=== PATIENT | female | born 1940 | race African-American/Black ===

== ENCOUNTER 2018-12-27 15:14 | Inpatient (IN) | payer MEDICARE, OTHER ==
[2018-12-27] MEDS: IPRATROPIUM (NEB) 0.5 MG/2.5 ML AMP INH (15:56)
[2018-12-27] MEDS: ALBUTEROL 0.083% (NEB) 2.5 MG/3 ML AMP INH (15:57)
[2018-12-27 16:30] LABS: ADD MAN DIFF? NO
[2018-12-27 16:32] LABS: WHITE BLOOD COUNT 5.9 10^3/ul (4.8-10.8)
[2018-12-27 16:32] LABS: BASOPHILS % 0.2 % (0.0-2.0); EOSINOPHILS # 0.2 10^3/ul (0.0-0.5); EOSINOPHILS % 3.1 % (0.0-7.0); HEMATOCRIT 33.4 % (37.0-47.0); LYMPHOCYTES % 34.1 % (15.0-51.0); MEAN CORPUSCULAR HGB CONC 29.9 g/dl (32.0-37.0); MEAN PLATELET VOLUME 9.7 fl (7.4-10.4); MONOCYTE # 0.6 10^3/ul (0.3-0.9); MONOCYTES % 10.1 % (0.0-11.0); NEUTROPHIL # 3.1 10^3/ul (1.6-7.5); NEUTROPHILS % 52.2 % (39.0-77.0); PLATELET COUNT 355 10^3/UL (140-415); RED BLOOD COUNT 3.84 10^6/ul (4.20-5.40); RED CELL DISTRIBUTION WIDTH 18.5 % (11.5-14.5)
[2018-12-27] MEDS: DEXAMETHASONE 10 MG/ML 1 ML INJ IV (16:41)
[2018-12-27 16:54] LABS: ALANINE AMINOTRANSFERASE 19 IU/L (13-69); ALBUMIN 3.7 g/dl (3.3-4.9); ALBUMIN/GLOBULIN RATIO 0.97; ALKALINE PHOSPHATASE 67 IU/L (42-121); ANION GAP 3 (5-13); ASPARTATE AMINO TRANSFERASE 36 IU/L (15-46); BILIRUBIN,INDIRECT 0.3 mg/dl (0-1.1); BILIRUBIN,TOTAL 0.3 mg/dl (0.2-1.3); BLOOD UREA NITROGEN 13 mg/dl (7-20); CALCIUM 9.4 mg/dl (8.4-10.2); CARBON DIOXIDE 40 mmol/L (21-31); CHLORIDE 97 mmol/L (97-110); GLUCOSE 171 mg/dl (70-220); POTASSIUM 3.7 mmol/L (3.5-5.1); SODIUM 140 mmol/L (135-144); TOTAL PROTEIN 7.5 g/dl (6.1-8.1)
[2018-12-27 17:04] LABS: TROPONIN-I < 0.012 ng/ml (0.000-0.120)
[2018-12-27] MEDS ORDERED: ACETAMINOPHEN 325 MG TAB PO ×2 (18:00→18:30)
[2018-12-27] MEDS ORDERED: ONDANSETRON 4 MG INJ IV ×2 (18:00→18:30)
[2018-12-27] MEDS ORDERED: LORAZEPAM 2 MG INJ IV (18:30)
[2018-12-27] MEDS ORDERED: morphine 2 MG INJ IV (18:30)
[2018-12-27] MEDS ORDERED: DOCUSATE SODIUM 100 MG CAP PO (18:30)
[2018-12-27] MEDS ORDERED: NITROGLYCERIN (SL) 0.4 MG TAB SL (18:30)
[2018-12-27] MEDS ORDERED: hydrALAzine 20 MG INJ IV (18:30)
[2018-12-27] MEDS ORDERED: NACL 0.9% 3 ML SYG IV (18:30)
[2018-12-27] MEDS ORDERED: MAGNESIUM HYDROXIDE 30ML CUP PO (18:30)
[2018-12-27] MEDS ORDERED: HYDROCODONE/APAP (5/325) TAB PO (18:30)
[2018-12-27] MEDS: SOD CHLORIDE 0.9% 100 ML (19:08)
[2018-12-27] MEDS: IOHEXOL 300MG/ML 150 ML BTL (19:08)
[2018-12-27 19:45] LABS: FREE T4 (FREE THYROXINE) 1.08 ng/dl (0.78-2.44)
[2018-12-28] MEDS: HEPARIN 5,000 UNIT/1 ML VIAL SC ×3 (02:12→20:22)
[2018-12-28] MEDS: SOD CHLORIDE 0.45% 1,000 ML IV ×3 (02:12→23:40)
[2018-12-28] MEDS: traZODone 50 MG TAB PO ×2 (02:12→20:22)
[2018-12-28] MEDS: [UNRECOGNIZED DRUG - REMARK] XX ×3 (07:30→23:30)
[2018-12-28] MEDS ORDERED: [UNRECOGNIZED DRUG - OTHER] PO (09:00)
[2018-12-28] MEDS: FAMOTIDINE 20 MG TAB PO (09:00)
[2018-12-28] MEDS: MULTIVITAMINS THERAPEUTIC TAB PO (09:05)
[2018-12-28] MEDS: CLOPIDOGREL 75 MG TAB PO (09:05)
[2018-12-29] MEDS: HEPARIN 5,000 UNIT/1 ML VIAL SC ×2 (09:00→21:00)
[2018-12-29] MEDS: [UNRECOGNIZED DRUG - REMARK] XX ×3 (09:13→23:30)
[2018-12-29] MEDS: MULTIVITAMINS THERAPEUTIC TAB PO (09:17)
[2018-12-29] MEDS: FAMOTIDINE 20 MG TAB PO (09:17)
[2018-12-29] MEDS: CLOPIDOGREL 75 MG TAB PO (09:18)
[2018-12-29] MEDS: SOD CHLORIDE 0.45% 1,000 ML IV (12:45)
[2018-12-29] MEDS: traZODone 50 MG TAB PO (21:58)
[2018-12-29] MEDS: ALBUTEROL/IPRATROPIUM (NEB) 3 ML AMP HHN (22:12)
[2018-12-30] MEDS: SOD CHLORIDE 0.45% 1,000 ML IV ×2 (01:33→14:57)
[2018-12-30] MEDS: FAMOTIDINE 20 MG TAB PO (08:47)
[2018-12-30] MEDS: HEPARIN 5,000 UNIT/1 ML VIAL SC ×2 (08:47→21:00)
[2018-12-30] MEDS: [UNRECOGNIZED DRUG - REMARK] XX ×3 (08:47→22:10)
[2018-12-30] MEDS: CLOPIDOGREL 75 MG TAB PO (08:47)
[2018-12-30] MEDS: MULTIVITAMINS THERAPEUTIC TAB PO (08:48)
[2018-12-30] MEDS: MUPIROCIN 2% 22 GM OINT TOP ×2 (10:14→21:29)
[2018-12-30 10:24] LABS: AADO2 Arterial 34.4 mmHg (7.0-24.0); Allen Test ACCEPTAB; Arterial Base Excess 5.6 mmol/L (-3.0-3); Arterial Blood Gas Oxygen Sat 87.6 mmHG (95.0-100.0); Arterial COHb 0 % (0.0-3.0); Arterial Fraction of Oxyhgb 87.3 % (93.0-99.0); Arterial HCO3 31.4 mmol/L (22.0-26.0); Arterial MetHb 0.3 % (0.0-1.5); Arterial pCO2 51.7 mmhg (35-45); MODE ROOM AIR; Site Right Radial
[2018-12-30] MEDS: ALBUTEROL/IPRATROPIUM (NEB) 3 ML AMP HHN (18:25)
[2018-12-30] MEDS: traZODone 50 MG TAB PO (21:29)
[2018-12-31] MEDS: [UNRECOGNIZED DRUG - REMARK] XX (07:30)
[2018-12-31] MEDS: FAMOTIDINE 20 MG TAB PO (09:00)
[2018-12-31] MEDS: MUPIROCIN 2% 22 GM OINT TOP (09:00)
[2018-12-31] MEDS: HEPARIN 5,000 UNIT/1 ML VIAL SC (09:00)
[2018-12-31] MEDS: CLOPIDOGREL 75 MG TAB PO (09:59)
[2018-12-31] MEDS: MULTIVITAMINS THERAPEUTIC TAB PO (10:02)
== END 2018-12-31 16:30 | DRG 191 ==
LOC: 6WM 22:04 → E/R 15:14
PROVIDERS: Hospitalist
DX: J44.1 Chronic obstructive pulmonary disease with (acute) exacerbation (principal); B20 Human immunodeficiency virus [HIV] disease; R09.02 Hypoxemia; Z87.891 Personal history of nicotine dependence
CPT/HCPCS: 36600; 71045; 71046; 71270; 80053; 82803; 84439; 84484; 85025; 87081; 92610; 93005; 93306; 94640; 94664; 96374; 97167; 99285-25